=== PATIENT | male | born 1980 | race Caucasian/White ===

== ENCOUNTER 2022-01-01 19:10 | Emergency (ER) | payer OTHER ==
[2022-01-01 19:18] VITALS: BP 116/81; PULSE 82; RESP 18; TEMP 98.1; BMI 32.1
[2022-01-01] MEDS ORDERED: ACETAMINOPHEN 1000 MG/100 ML BAG IVPB ONE (20:20)
[2022-01-01] MEDS ORDERED: ACETAMINOPHEN INJECTION 100 ML IVPB ONE (20:25)
[2022-01-01] MEDS ORDERED: KETOROLAC TROMETHAMINE 15 MG/ML VIAL IVPUSH ONE (20:37)
[2022-01-01] MEDS ORDERED: KETOROLAC TROMETHAMINE 15 MG/ML VIAL ONE (20:39)
[2022-01-01 20:57] LABS: BASO % 0.2 % (0-2.0); EOS % 0.8 % (0-4.5); HEMATOCRIT 43.7 % (35.4-49); HEMOGLOBIN 14.7 GM/dL (11.7-16.9); LYMPH % 18.7 % (8-40); MCHC 33.6 g/dl (32.0-35.9); MEAN CELL VOLUME 89.4 fl (80-96); MONO % 4.5 % (3.8-10.2); NEUT % 75.8 % (42.8-82.8); PLATELET COUNT 258 10^3/uL (134-434); RBC 4.88 M/mm3 (4.00-5.60); RDW 13.5 % (11.9-15.9); WHITE BLOOD COUNT 9.4 K/mm3 (4.0-10.0)
[2022-01-01 21:01] LABS: CALCIUM 9.3 mg/dL (8.5-10.1)
[2022-01-01 21:03] LABS: ALBUMIN 3.8 g/dl (3.4-5.0); BLOOD UREA NITROGEN 14.2 mg/dL (7-18)
[2022-01-01 21:06] LABS: CREATININE 0.9 mg/dL (0.55-1.3)
[2022-01-01 21:07] LABS: BILIRUBIN,TOTAL 0.4 mg/dL (0.2-1); TOT PROT 7.2 g/dl (6.4-8.2)
[2022-01-01 22:16] LABS: EPI CELLS 3 /uL (0-25.1); HYALINE CASTS 0 /uL (0-3.1); URINE APPEARANCE CLEAR; URINE BACTERIA 2 /uL (0-1359); URINE BILIRUBIN NEGATIVE (NEGATIVE); URINE COLOR ORANGE; URINE GLUCOSE (UA) NEGATIVE (NEGATIVE); URINE KETONE NEGATIVE (NEGATIVE); URINE LEUK ESTERASE NEGATIVE (NEGATIVE); URINE NITRITE NEGATIVE (NEGATIVE); URINE PROTEIN NEGATIVE (NEGATIVE); URINE RBC 3394 /uL (0-23.9); URINE WBC 11 /uL (0-25.8)
== END 2022-01-02 01:45 | disposition home or self-care (01) ==
LOC: JER 19:10
PROC: 3E033GC Introduction of Other Therapeutic Substance into Peripheral Vein, Percutaneous Approach (ICD-10-PCS; principal; 2022-01-01)
DX: M54.50 Low back pain, unspecified (principal)
CPT/HCPCS: 36415; 76705-TC; 76775-TC; 80053; 81003; 83690; 85025; 87086; 99284-25